=== PATIENT | female | born 1995 | race Caucasian/White ===

== ENCOUNTER 2024-06-29 09:08 | Emergency (ER) | payer MEDICAID | END 2024-06-29 10:17 | disposition left against medical advice (07) | LOC: JP.ED 09:08 | DX: R42 Dizziness and giddiness (principal); Z87.891 Personal history of nicotine dependence; Z79.899 Other long term (current) drug therapy | CPT/HCPCS: 99283 ==

== ENCOUNTER 2024-11-12 18:12 | Emergency (ER) | payer MEDICAID | END 2024-11-12 19:00 | disposition left against medical advice (07) | LOC: JP.ED 18:12 | DX: Z53.21 Procedure and treatment not carried out due to patient leaving prior to being seen by health care provider (principal) ==